=== PATIENT | female | born 1955 | race Caucasian/White ===

== ENCOUNTER 2023-08-17 03:52 | Outpatient (CLI) | payer MEDICARE, SELFPAY ==
[2023-08-17 12:52] LABS: Abs Immature Grans 0.04 10^3/uL (0.0-0.06); Absolute Basophil Count 0.04 10^3/uL (0.0-0.2); Absolute Eosinophil Count 0.39 10^3/uL (0.0-0.7); Absolute Lymphocyte Count 0.98 10^3/uL (1.2-3.4); Absolute Monocyte Count 0.65 10^3/uL (0.1-0.8); Absolute Neutrophil Count 2.97 10^3/uL (1.2-6.7); Basophils % 0.8; Eosinophils % 7.7; HCT 32.6 % (36.0-46.0); HGB 10.4 g/dL (11.2-15.7); Immature Grans % 0.8; Lymphocytes % 19.3; MCH 27.7 pg (27.0-33.0); MCHC 31.9 % (32.0-36.0); MCV 87 fL (80-95); MPV 8.8 fL (8.0-11.0); Monocytes % 12.8; Neutrophils % 58.6; Platelet Count 205 10^3/uL (130-400); RBC 3.76 10^6/uL (3.93-5.22); RDW 15.6 % (11.7-14.6); RDW-SD 48.4 fL; WBC 5.07 10^3/uL (4.4-10.8)
[2023-08-17 13:20] LABS: ALT 20 U/L (14-59); AST 19 U/L (15-37); Albumin 2.9 g/dL (3.4-5.0); Alkaline Phosphatase 93 U/L (46-116); Anion Gap 11.4 mmol/L (3-11); BUN 14 mg/dL (7-18); Bilirubin, Total 0.2 mg/dL (0.2-1.0); CO2 25.6 mmol/L (21.0-32.0); CREATININE 1.1 mg/dL (0.55-1.02); Calcium 9.1 mg/dL (8.5-10.1); Chloride 99 mmol/L (98-107); Estimated GFR 54.39 (mL/min/1.73m2); Glucose 121 mg/dL (74-106); Sodium 136 mmol/L (136-145); Total Protein 6.6 g/dL (6.4-8.2)
[2023-08-18 12:58] LABS: CA 125 1412 U/mL (<30)
== END 2023-08-17 03:53 | disposition home or self-care (01) ==
PROVIDERS: Visit Provider Obstetrics & Gynecology Gynecologic Oncology
DX: C80.0 Disseminated malignant neoplasm, unspecified (principal); R97.1 Elevated cancer antigen 125 [CA 125]
CPT/HCPCS: 36415; 80053; 86304; 85025